=== PATIENT | female | born 1940 | race Caucasian/White ===

== ENCOUNTER 2017-10-31 12:48 | Inpatient (IN) | payer OTHER ==
[~2017-10-31] VITALS: Ht 170.2 cm; Wt 69.9 kg
[~2017-10-31 12:48] MED LIST: ACETAMINOPHEN325 M1 PO; COLACE100 MG PO; GABAPENTIN100 MG PO; LEVOTHROID75 MCG; MEDROLDOSEPACK; METAMUCIL283 GM PO; MOM PO; TRAMADOL 50 MG50 MG PO; WELLBUTRIN XL150 M1; ZOLOFT100 MG
[2017-10-31 12:52] VITALS: BP 182/77
[2017-10-31] MEDS ORDERED: VITAMIN D3400 UNIT PO (12:58)
[2017-10-31 13:17] LABS: ABSOLUTE EOSINOPHILS 0.1 thou/uL (0.0-0.7); ABSOLUTE LYMPHOCYTES 1.9 thou/uL (0.8-5.3); ABSOLUTE MONOCYTES 0.5 thou/uL (0.0-1.2); ABSOLUTE NEUTROPHILS 2.6 thou/uL (1.6-8.1); BASOPHILS 0.7 %; EOSINOPHILS 2.1 %; HEMATOCRIT 42.1 % (37.0-47.0); HEMOGLOBIN 14.3 gm/dL (12.0-15.0); MCH 31.1 pg (26.0-34.0); MCHC 33.9 g/dL (28.0-37.0); MCV 91.8 fL (80.0-100.0); MPV 8.1 fl. (7.2-11.1); NUCLEATED RBCS 0 /100WBC; PLATELET COUNT* 307 thou/uL (150-400); POLYS 51.2 %; RBC 4.59 mil/uL (4.20-5.00); RDW-CV 14.2 % (10.5-14.5); WBC 5.2 thou/uL (4.0-11.0)
[2017-10-31 13:27] LABS: ANION GAP 10 mmol/L (7-16); APTT 29.9 Seconds (25.0-31.3); BUN 18 mg/dL (7-18); CALCIUM 9.3 mg/dL (8.5-10.1); CHLORIDE 101 mmol/L (98-107); CO2 28 mmol/L (21-32); CREATININE 1.3 mg/dL (0.6-1.3); GLUCOSE 101 mg/dL (70-99); POTASSIUM 3.9 mmol/L (3.5-5.1); PROTIME 9.8 Seconds (9.20-11.50); SODIUM 139 mmol/L (136-145)
[2017-10-31 13:37] LABS: ALBUMIN 3.9 g/dL (3.4-5.0); ALKALINE PHOSPHATASE 43 U/L (46-116); LIPASE 113 U/L (73-393); MAGNESIUM 2.3 mg/dL (1.8-2.4); NT-PRO BRAIN NAT PEPTIDE 263 pg/mL (<300); SGOT 23 U/L (15-37); SGPT 26 U/L (30-65); TOTAL BILIRUBIN 0.4 mg/dL (<0.1-1.0); TOTAL PROTEIN 7.6 g/dL (6.4-8.2); TROPONIN-I LEVEL <0.06 ng/mL (<0.06)
--- NOTE | 2017-10-31 14:46 | NUR ---
PT STATES SHE HAS HAD TINGLING AND NUMBNESS IN HER HANDS, ARMS, LEGS AND FEET LATELY. PT STATES SHE IS STARTING TO HAVE FEELING IN HER TOES AGAIN, HOWEVER.
[2017-10-31 18:19] VITALS: BP 151/68
[2017-10-31 18:30] VITALS: BP 157/72
--- NOTE | 2017-10-31 19:26 | NUR ---
RECEIVED REPORT FROM ILDEFONSO IN ER. PT TRANSFERED TO [facility] FLOOR AROUND 1830. PT A&O X4, VSS, O2 SAT 99% ON RA. PT ORIENTED TO ROOM, BED AND CALL LIGHT. ADMISSION HISTORY, ASSESSMENT AND EDUCATION COMPLETED CHARTED. 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 IV TO LEFT AC INTACT AND SALINE LOCKED. PT DENIES PAIN OR DISCOMFORT AT THIS TIME, STATES SHE IS FEELING MUCH BETTER THAN WHEN SHE CAME IN. NO CHEST PAIN AT THIS TIME. FAMILY AT BEDSIDE. PT EATING DINNER WITHOUT ISSUE. PT CURRENTLY SITTING UP IN BED. CALL LIGHT IS WITHIN REACH. LOW RISK FALL PRECAUTIONS ARE IN PLACE. HOURLY ROUNDING PERFORMED.
[2017-10-31 20:00] VITALS: BP 133/64
[2017-11-01] VITALS: BP 124/60
--- NOTE | 2017-11-01 01:17 | NUR ---
ASSUMED PT CARE AT 19:15. REPORT RECEIVED FROM NURSE. PT IS ALERT, AWAKE ORIENTED X4. VITAL SIGNS WITHIN NORMAL LIMIT. FAMILY AT BEDSIDE. PT DOES NOT HAVE ANY CONCERN AND IS FREE OF PAIN. SINUS RYTHM ON THE MONITOR. ASSESSMENT PERFORMED. REFER TO CHART.DR MOHAN CONTACTED TO UPDATE MED LIST FOR THE MORNING. O2 SATURATION IS 96 ON RA.SCDS APPLIED. REQUESTED THE ADVANCE DIRECTIVE COPY FROM PT'S SO IT CAN BE IN CHART, SAYS HE WILL BRING IT IN THE MORNING. DR MOHAN TO BE CONTEACTEDC AGAIN IN THE EARLY AM TO UPDATE MED LIST. PT IS CURRENTLY SLEEPING IN BED. LIGHTS ARE OFF AND ROOM KEPT QUIET. WILL CONTINUE TO MONITOR.
[2017-11-01 04:00] VITALS: BP 121/59
[2017-11-01 08:00] VITALS: BP 125/62
--- NOTE | 2017-11-01 13:07 | EKG ---
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: Roselia LIRIANO : 1940 Requested By: Dash Lucero Order Number: [id number] MD: Ovi Elias Measurements Intervals [place] Rate: 58 P: 54 [place]: 156 QRS: 25 QRSD: 80 T: 70 QT: 448 QTc: 441 Interpretive Statements Sinus rhythm Ventricular premature complex ST elevation, consider inferior injury Baseline wander in lead(s) II,III,aVF,V3 Compared to ECG 10/03/2012 15:06:04 Ventricular premature complex(es) now present ST (T wave) deviation now present Myocardial infarct finding now present Atrial premature complex(es) no longer present Electronically Signed On 11-01-2017 13:07:01 CDT by Ovi Elias [email or web address] <ELECTRONICALLY SIGNED> By: Ovi Elias MD, [facility] 11/01/17 1307 1254 1254 Ovi Elias MD, [facility] /EPI
[2017-11-01 13:33] VITALS: BP 121/51
--- NOTE | 2017-11-01 13:56 | NUR ---
Pt is A&O. Resides at home with her . Dtr at bedside. Supportive family that is involved in POC. Normally active and independent. No DME. No hx of HH. Hx of skilled at [facility] after back surgery. Goal is to dc home, hopeful that she will be able to dc today. No needs anticipated.
[2017-11-01] MEDS ORDERED: CHILDREN'S ASPI81 M1 PO (16:46)
[2017-11-01 17:09] VITALS: BP 121/51
[2017-11-01 17:11] VITALS: BP 121/51
--- NOTE | 2017-11-03 09:40 | NUR ---
Faxed event recorder order to Pt's PCP, Dr Alvarenga f:[phone], p:[phone]
== END 2017-11-01 17:38 | disposition home or self-care (01) | DRG 310 ==
LOC: M.ERS 12:48 → M.TBA-ER 14:52 → M.2W 14:52
PROVIDERS: Emergency Medicine Emergency Medical Services; ADMIT Internal Medicine
DX: R00.1 Bradycardia, unspecified (principal); R07.89 Other chest pain; E03.9 Hypothyroidism, unspecified; R00.2 Palpitations; Z79.899 Other long term (current) drug therapy; Z88.5 Allergy status to narcotic agent

== ENCOUNTER 2020-03-28 12:38 | Emergency (ER) | payer OTHER ==
[~2020-03-28] VITALS: Ht 170.2 cm; Wt 68.0 kg
[~2020-03-28 12:38] MED LIST changes: +CHILDREN'S ASPI81 M1 PO; +VITAMIN D3400 UNIT PO
[2020-03-28] MEDS ORDERED: VITAMIN B-121000 MC2 SUBLING (12:54)
[2020-03-28] MEDS ORDERED: ALPRAZOLAM XR3 MG (12:54)
[2020-03-28] MEDS ORDERED: LEXAPRO 10 MG T10 M1 PO (12:54)
[2020-03-28 15:26] LABS: ABSOLUTE EOSINOPHILS 0.1 thou/uL (0.0-0.7); ABSOLUTE LYMPHOCYTES 1.3 thou/uL (0.8-5.3); ABSOLUTE MONOCYTES 0.4 thou/uL (0.0-1.2); ABSOLUTE NEUTROPHILS 3.1 thou/uL (1.6-8.1); BASOPHILS 0.7 %; HEMATOCRIT 37.1 % (37.0-47.0); HEMOGLOBIN 12.8 gm/dL (12.0-15.0); MCH 31.8 pg (26.0-34.0); MCHC 34.5 g/dL (28.0-37.0); MCV 92.2 fL (80.0-100.0); MONOCYTES 7.3 %; MPV 7.5 fl. (7.2-11.1); NUCLEATED RBCS 0 /100WBC; PLATELET COUNT* 271 thou/uL (150-400); RBC 4.02 mil/uL (4.20-5.00); RDW-CV 13.8 % (10.5-14.5); WBC 4.9 thou/uL (4.0-11.0)
[2020-03-28 15:33] LABS: CALCIUM 8.8 mg/dL (8.5-10.1); CREATININE 1.3 mg/dL (0.6-1.3); POTASSIUM 4.5 mmol/L (3.5-5.1)
[2020-03-28 15:37] LABS: ALBUMIN 3.5 g/dL (3.4-5.0); TOTAL BILIRUBIN 0.4 mg/dL (<0.1-1.0); TOTAL PROTEIN 6.9 g/dL (6.4-8.2)
[2020-03-28 16:38] LABS: URINE BILIRUBIN NEGATIVE (Negative); URINE BLOOD NEGATIVE (Negative); URINE CLARITY CLEAR; URINE COLOR YELLOW; URINE GLUCOSE-RANDOM NEGATIVE (Negative); URINE KETONES NEGATIVE (Negative); URINE LEUKOCYTES-REFLEX NEGATIVE (Negative); URINE NITRITE-REFLEX NEGATIVE (Negative); URINE PROTEIN NEGATIVE (Negative); URINE SPECIFIC GRAVITY 1.015 (1.005-1.030); URINE UROBILINOGEN 0.2 E.U./dl (0.2-1.0)
[2020-03-28 17:05] VITALS: BP 139/75
--- NOTE | 2020-03-29 10:13 | EKG ---
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: [facility] : 1940 Requested By: Destiny Pena Order Number: [id number] MD: Mauricio Rivera Measurements Intervals [place] Rate: 55 P: 59 [place]: 174 QRS: 36 QRSD: 96 T: 71 QT: 480 QTc: 460 Interpretive Statements Sinus bradycardia Compared to ECG 10/31/2017 12:54:32 Ventricular premature complex(es) no longer present Electronically Signed On 03-29-2020 10:13:02 CDT by Mauricio Rivera [email or web address] <ELECTRONICALLY SIGNED> By: Mauricio Rivera MD, [facility] 03/29/20 1013 1415 1415 Mauricio Rivera MD, [facility] /EPI
== END 2020-03-28 17:06 | disposition home or self-care (01) ==
LOC: M.ERS 12:38
PROVIDERS: Personal Emergency Response Attendant
DX: R55 Syncope and collapse (principal); R42 Dizziness and giddiness; R53.83 Other fatigue; Z79.899 Other long term (current) drug therapy; Z88.6 Allergy status to analgesic agent